=== PATIENT | male | born 1995 | race Caucasian/White ===

== ENCOUNTER 2017-02-14 18:07 | Emergency (ER) | payer BC ==
[2017-02-14 18:12] VITALS: BP 123/76; PULSE 83; RESP 16; TEMP 97.7; O2SAT 97
--- NOTE | 2017-02-14 18:20 | EDPHY ---
H & P Time Seen by Provider: 02/14/17 18:14 HPI/ROS: CHIEF COMPLAINT: Epistaxis HISTORY OF PRESENT ILLNESS: This patient is a 21 y/o male with history of deviated septum complaining of intermittent nosebleeds. Over the last several days, he has gotten several left sided nosebleeds lasting around an hour each. He is generally able to relieve these by pinching the bridge of his nose or placing cotton in his nostril. He cannot identify any provocation for the bleeds. The patient notes he has difficulty breathing due to his deviated septum. He is from [place] originally and denies history of bleeds due to altitude. No bleeding now. He denies any recent illness. No recent trauma. REVIEW OF SYSTEMS: A 10 point review of systems was performed and is negative with the exception of the elements mentioned in the history of present illness. Past Medical/Surgical History: 1.Deviated septum Social History: Student at [employer]. History major. Originally from [place]. Smoking Status: Never smoked Physical Exam: General Appearance: Alert, anxious Eyes: Pupils equal and round, no conjunctival pallor ENT, Mouth: nose: normal septum, no bleeding or source of bleeding visible, mucous membranes moist, no oropharyngeal blood Neck: Normal inspection Chest: Normal respiratory rate CV: Regular rate rhythm Skin: Warm and dry Extremities: Normal inspection Psychiatric: Anxious Constitutional: Initial Vital Signs Temperature (C) 36.5 C 02/14/17 18:09 Heart Rate 83 02/14/17 18:09 Respiratory Rate 16 02/14/17 18:09 Blood Pressure 123/76 H 02/14/17 18:09 O2 Sat (%) 97 02/14/17 18:09 O2 Delivery Mode Room Air Allergies/Adverse Reactions: No Known Allergies Allergy (Unverified 02/14/17 18:08) Home Medications: Medication Instructions Recorded NK [No Known Home Meds] 02/14/17 Medical Decision Making ED Course/Re-evaluation: 21 y/o male presents with frequent epistaxis over the last several days. On exam , I do not note any current epistaxis, no abnormal or exposed vessels. Plan to d/c home in good condition with nasal clip and referral to ENT for further evaluation of his epistaxis and deviated septum. Follow up and return precautions discussed. The patient is comfortable with this plan. Departure - Departure Disposition: Home, Routine, Self-Care Clinical Impression: Epistaxis Condition: Good Instructions: Nosebleed (ED) Additional Instructions: 1. In the case of further nosebleeds, place nasal clip for 15 minutes. For persistent bleeding, seek medical attention. 2. Follow up with an ENT specialist for further evaluation and discussion of nasal septal reconstruction or other conservative treatments. 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 3. Return to the emergency department for uncontrollable bleeding, fainting, or other concerns or worsening of condition. 4. Consider a humidifier to relieve dryness, which may help reduce the frequency of your nosebleeds. Referrals: Hipolito Garza MD [Medical Doctor] - As per Instructions Report Scribed for: Alda Simpson Report Scribed by: Thania Lopez Date of Report: 02/14/17 Time of Report: 18:18 Physician Review and Approval Statement: 02/14/17 18:18 Portions of this note were transcribed by a medical staff specialist. I personally performed a history, physical exam, medical decision making, and confirmed accuracy of information the transcribed note.
== END 2017-02-14 18:55 | disposition home or self-care (01) ==
DX: R04.0 Epistaxis (principal)